=== PATIENT | female | born 1960 | race Caucasian/White ===

== ENCOUNTER 2017-11-27 05:41 | Emergency (ER) | payer OTHER ==
[~2017-11-27] VITALS: Ht 160 cm; Wt 65.8 kg
--- NOTE | 2017-11-27 05:45 | NUR ---
WORSENING RLQ ABD PAIN +N/V/D WORSENING SINCE YESTERDAY PM. RR EVEN AND UNLABORED. PENDING MD ANDERSEN.
[2017-11-27] MEDS ORDERED: KETOROLAC TROMETHAMINE 15 MG/ML VIAL ONE (06:21)
[2017-11-27] MEDS ORDERED: ONDANSETRON HCL/PF 4 MG/2 ML VIAL ONE (06:21)
[2017-11-27] MEDS ORDERED: DICYCLOMINE HCL INJ 20 MG/2 ML AMPUL IM ONE ×2 (06:21→06:30)
[2017-11-27] MEDS ORDERED: IV NS 0.9% 1,000 ML BAG IV ONE (06:30)
[2017-11-27] MEDS ORDERED: KETOROLAC TROMETHAMINE INJ 30 MG/ML VIAL IV ONE (06:30)
[2017-11-27] MEDS ORDERED: ONDANSETRON HCL/PF 4 MG/2 ML VIAL IVP ONE (06:30)
[2017-11-27 07:26] VITALS: BP 102/68
== END 2017-11-27 07:27 | disposition home or self-care (01) ==
LOC: ER 05:58
DX: R10.84 Generalized abdominal pain (principal); R11.2 Nausea with vomiting, unspecified; F41.9 Anxiety disorder, unspecified; Z90.49 Acquired absence of other specified parts of digestive tract
CPT/HCPCS: A4606; J0500; J1885; J2405; J7030; Z7610

== ENCOUNTER 2018-10-18 06:47 | Inpatient (IN) | payer OTHER ==
[~2018-10-18] VITALS: Ht 160 cm; Wt 68.0 kg
--- NOTE | 2018-10-18 07:00 | NUR ---
AAOX3, BIBSELF C/O GENERALIZED ABDOMINAL PAIN X2 WEEKS, PROGRESSIVELY GETTING WORSE X1 DAY. +NAUSEA, +VOMITTING, -DYSURIA, -HEMATURIA, -FEVER. RR IS EVEN AND UNLABORED WITH NAD NOTED. PLACED ON A HOSPITAL GOWN. AWAITING MD FOR EVAL.
[2018-10-18] MEDS ORDERED: MORPHINE SULFATE INJ 4 MG/ML DISP.SYRIN ONE (07:09)
[2018-10-18] MEDS ORDERED: ONDANSETRON HCL/PF 4 MG/2 ML VIAL ONE (07:09)
--- NOTE | 2018-10-18 07:17 | NUR ---
IV LINE OBTAINED ON L WRIST 20G. BLOOD DRAWN BY TECH AT BEDSIDE.
[2018-10-18] MEDS: MORPHINE SULFATE INJ 2 MG/ML DISP.SYRIN IV ONE ×2 (07:24→08:35)
[2018-10-18] MEDS ORDERED: ONDANSETRON HCL/PF 4 MG/2 ML VIAL IVP ONE (07:30)
[2018-10-18] MEDS ORDERED: IV NS 0.9% 1,000 ML BAG IV ONE (07:30)
--- NOTE | 2018-10-18 07:30 | NUR ---
PT ENDORSED TO [facility] ASHBY FOR REJI
[2018-10-18 07:38] LABS: BASOPHILS # (AUTO) 0.1 /CMM (0.0-0.2); EOSINOPHILS % (AUTO) 0.1 % (0.0-6.0); HEMATOCRIT 41 % (33-45); LYMPHOCYTES % (AUTO) 8.2 % (20.0-44.0); MEAN CORPUSCULAR HGB CONC 34 g/dl (31.0-36.0); MEAN CORPUSCULAR VOLUME 87 fL (82-100); MONOCYTES # (AUTO) 0.5 /CMM (0.1-1.30); MONOCYTES % (AUTO) 4.5 % (2.0-12.0); NEUTROPHILS # (AUTO) 10.4 /CMM (1.8-8.9); NEUTROPHILS % (AUTO) 86.2 % (43.0-81.0); PLATELET COUNT (AUTO) 387 /CMM (150-450); RED BLOOD CELL COUNT(AUTO) 4.73 MIL/uL (4.0-5.2); WHITE BLOOD COUNT (AUTO) 12.1 K/uL (4.3-11.0)
[2018-10-18 07:43] LABS: CALCIUM, SERUM 9.2 mg/dL (8.5-10.1); CREATININE 0.8 mg/dL (0.6-1.3); POTASSIUM 4.2 mmol/L (3.5-5.1)
[2018-10-18 07:49] LABS: ALBUMIN 3.4 g/dL (3.4-5.0); BILIRUBIN,DIRECT 0.1 mg/dL (0.0-0.2); BILIRUBIN,TOTAL 0.4 mg/dL (0.2-1.0)
[2018-10-18] MEDS ORDERED: DIATR MEGLU/DIATRIZOATE SODIUM 30 ML BOTTLE (GASTROGRAPHIN) ONE (08:07)
[2018-10-18 08:13] LABS: APPEARANCE,URINE Clear (CLEAR); BILIRUBIN,URINE Negative (NEGATIVE); BLOOD, URINE Trace-intact Ery/uL (NEGATIVE); COLOR,URINE Yellow (YELLOW); KETONES,URINE Negative (NEGATIVE); LEUKOCYTE ESTERASE ,URINE Negative (NEGATIVE); NITRITE, URINE Negative (NEGATIVE); PH,URINE 7.5 (5.0-8.0); PROTEIN,URINE Negative (NEGATIVE); UGLUCOSE Negative (NEGATIVE); UROBILINOGEN,URINE 0.2 EU/dL (0.2)
[2018-10-18 08:29] LABS: SQUAMOUS EPITHELIAL CELL,UR None Seen /HPF (None Seen)
[2018-10-18 08:30] LABS: BACTERIA,URINE None seen /HPF (None Seen); WBC,URINE 0-2 /HPF (0-3)
[2018-10-18 08:31] LABS: RBC,URINE 0-2 /HPF (0-2)
[2018-10-18] MEDS ORDERED: PIPERACILLIN /TAZOBACTAM 3.375 G in IV D5W 50 ML IV ONE (10:30)
--- NOTE | 2018-10-18 10:45 | NUR ---
CALLED DR. STEARNS AND TRANSFERRED TO DR. NEGRETE.
--- NOTE | 2018-10-18 10:56 | NUR ---
DR. HUGHES PAGED AND RECEIVED A CALL BACK, TRANSFERRED TO DR. NEGRETE.
[2018-10-18 12:00] VITALS: BP 125/81
--- NOTE | 2018-10-18 12:10 | NUR ---
PATIENT A/OX4, AMBULATORY, DENIES NAUSEA OR VOMITING AT THIS TIME. DENIES PAIN OR DISCOMFORT AT THIS TIME. WILL CONTINUE TO MONITOR.
--- NOTE | 2018-10-18 12:12 | NUR ---
BED 328-2
--- NOTE | 2018-10-18 12:17 | NUR ---
VERIFIED WITH DR. NEGRETE RE: PLACEMENT OF NGT, PER MD, DR. STEARNS DID NOT ORDER AN INSERTION AT THIS TIME. REPORT GIVEN TO MAMI WALLACE, ENDORSED TO CONFIRM WITH DR. STEARNS RE: INSERTION OF NGT.
--- NOTE | 2018-10-18 12:32 | NUR ---
patient transferred to room 328-1 MS, in stable condition.
--- NOTE | 2018-10-18 12:35 | NUR ---
PT HAS NO COMPLAINT OF ABDOMINAL PAIN OR NAUSEA, NOT IN DISTRESS, TOLERATING ROOM AIR, CALL LIGHT WITHIN REACH.
--- NOTE | 2018-10-18 12:35 | NUR ---
RN MS NOTES RECEIVED PT FROM E.R. STAFF VIA WHEELCHAIR, PT IS AWAKE, ALERT AND ORIENTED, ASSISTED TO BED, MADE COMFORTABLE, ROOM SET UP ORIENTATION PROVIDED TO PT, VERBALIZED UNDERSTANDING, PT ASSISTED TO BATHROOM AND HAD A BM, PER PT IT IS REGULAR IN SIZE AND CONSISTENCY, NO FOUL ODOR, AWAITING ADMITTING ORDERS FROM MD.
[2018-10-18] MEDS ORDERED: MORPHINE SULFATE INJ 2 MG/ML DISP.SYRIN IV PRN (14:00)
[2018-10-18] MEDS ORDERED: MAG HYDROX/AL HYDROX/SIMETH 30 ML UDC PO PRN (14:00)
[2018-10-18] MEDS ORDERED: Z GUARD REMEDY 2 OZ OINT TP PRN (14:00)
[2018-10-18] MEDS ORDERED: ACETAMINOPHEN 325 MG TABLET PO PRN (14:00)
[2018-10-18] MEDS ORDERED: ZOLPIDEM TARTRATE 5 MG TABLET PO PRN (14:00)
[2018-10-18] MEDS ORDERED: MAGNESIUM HYDROXIDE 30 ML UDC PO PRN (14:00)
[2018-10-18] MEDS ORDERED: ONDANSETRON HCL/PF 4 MG/2 ML VIAL IVP PRN (14:00)
[2018-10-18] MEDS ORDERED: HYDROCODONE/APAP 5/325MG 1 EACH TABLET PO PRN (14:00)
[2018-10-18] MEDS: IV D5/0.45 NACL 1,000 ML IV PRN (15:01)
[2018-10-18 16:00] VITALS: BP 112/74
[2018-10-18] MEDS: DOCUSATE SODIUM 100 MG CAPSULE PO SCH (16:47)
[2018-10-18] MEDS: LEVOFLOXACIN 500 MG /D5W 100ML 500 MG in PREMIX 1 EA IV SCH (16:47)
[2018-10-18] MEDS: SENNOSIDES/DOCUSATE SODIUM 1 TAB TABLET PO SCH (16:48)
--- NOTE | 2018-10-18 19:00 | NUR ---
RN MS NOTES PT IN BED, AWAKE, ALERT AND ORIENTED, NO COMPLAINT OF PAIN AT THIS TIME, NO NAUSEA OR VOMITING, PT ABLE TO HAVE BOWEL MOVEMENTS TODAY, IV FLUIDS INFUSING WELL, PT SEEN BY DR HUGHES AND DR STEARNS, PER OK TO START ON CLEAR LIQUID DIET, PLAN OF CARE DISCUSSED WITH PT AND FAMILY, VERBALIZED UNDERSTANDING, ALL NEEDS ATTENDED.
--- NOTE | 2018-10-18 19:48 | NUR ---
MS FORESTRY AND WILDLIFE MANAGER INITIAL NOTES RECEIVED REPORT FROM AM NURSE WHILE DOING OUR ROUNDS, SEEN SITTING IN HER BED STILL EATING HER DINNER,DENIES ANY N/V AT THIS TIME. NO SIGNS OF ANY DISTRESS NOTED. PT STATED SHE FEEL MUCH BETTER THAT EARLIER . SHE PASSES GAS AND AT THE SAME TIME NO ABDOMINAL PAIN AT THIS TIME. PT STILL ON IVF D51/2 NS AT 75ML.HR INFUSING ON HER LEFT HAND HAND PATENT AND INTACT. NO REDNESS NOTED. ENCOURAGE PT TO USED THE CALL LIGHT SYSTEM IF SHE NEEDS SOME HELP OR NEEDS THE NURSE. KEPT HER WARM AND COMFORTABLE AT ALL TIMES. PLACE CALL LIGHT AT REACH. WILL CONTINUE MONITORING.
[2018-10-18 20:00] VITALS: BP 114/60
[2018-10-18] MEDS: METRONIDAZOLE 500MG/ NS 100ML 500 MG in PREMIX 1 EA IV SCH (21:45)
--- NOTE | 2018-10-18 21:51 | NUR ---
COVERING PRIMARY NURSE-DARY IV Metronidazole administered, education provided, indication and possible side effect explained, patient verbalized understanding.
[2018-10-18] MEDS ORDERED: POLYETHYLENE GLYCOL 3350 17 GM POWD.PACK PO SCH (22:00)
--- NOTE | 2018-10-18 23:40 | NUR ---
MS BRUNO NOTES PT COMPLAINED OF HEADACHE, TYLENOL PO GIVEN ORDERED.
--- NOTE | 2018-10-19 02:00 | NUR ---
ms caleb initial notes pt resting comfortably in bed without any distress noted. kept her warm and comfortable at all times. place call light at reach. will continue to monitor.
[2018-10-19] MEDS: METRONIDAZOLE 500MG/ NS 100ML 500 MG in PREMIX 1 EA IV SCH ×2 (06:01→12:02)
--- NOTE | 2018-10-19 06:04 | NUR ---
COVERING PRIMARY NURSE-DARY IV Metronidazole administered, education provided, indication and possible side effect explained, patient verbalized understanding.
[2018-10-19] MEDS: IV D5/0.45 NACL 1,000 ML IV PRN (07:15)
--- NOTE | 2018-10-19 07:42 | NUR ---
ms yield improvement engineer closing notes pt is awake and alert sitting in her bed with a smile on her face when I greet her good morning. she stated she feel much better after she took miralax last night . slept well and denies any pain or any discomfort. all due meds given and all needs met. kept her warm and comfortable at all times. IVF still infusing. endorse to am nurse for continuity of care. place call light at reach.
--- NOTE | 2018-10-19 07:59 | NUR ---
RN MS OPENING NOTES Patient remains on room air, no sob noted. Patient denies pain at this time to her stomach. Patient stated that she is more comfortable after having a BM after she received miralax last night. Patient stated she is excited to go home. Vital signs stable, bed at the lowest setting, call light within reach.
[2018-10-19 08:00] VITALS: BP 124/76
[2018-10-19] MEDS: DOCUSATE SODIUM 100 MG CAPSULE PO SCH ×3 (08:18→16:52)
[2018-10-19] MEDS: SENNOSIDES/DOCUSATE SODIUM 1 TAB TABLET PO SCH (08:18)
[2018-10-19 08:26] LABS: BASOPHILS % (AUTO) 0.4 % (0.0-2.0); EOSINOPHILS % (AUTO) 0.9 % (0.0-6.0); HEMATOCRIT 38 % (33-45); HEMOGLOBIN 12.8 g/dL (11.5-14.8); LYMPHOCYTES # (AUTO) 1.5 /CMM (0.8-4.8); MEAN CORPUSCULAR HGB CONC 34 g/dl (31.0-36.0); MEAN CORPUSCULAR VOLUME 87 fL (82-100); MONOCYTES # (AUTO) 0.3 /CMM (0.1-1.30); NEUTROPHILS # (AUTO) 2.2 /CMM (1.8-8.9); NEUTROPHILS % (AUTO) 54.7 % (43.0-81.0); PLATELET COUNT (AUTO) 353 /CMM (150-450); RED BLOOD CELL COUNT(AUTO) 4.34 MIL/uL (4.0-5.2); WHITE BLOOD COUNT (AUTO) 4.1 K/uL (4.3-11.0)
[2018-10-19 08:40] LABS: CALCIUM, SERUM 8.4 mg/dL (8.5-10.1); CREATININE 0.8 mg/dL (0.6-1.3); MAGNESIUM 2.2 mg/dL (1.8-2.4); POTASSIUM 3.7 mmol/L (3.5-5.1)
[2018-10-19] MEDS ORDERED: LEVO500T75 PO (12:10)
[2018-10-19] MEDS ORDERED: DIATR MEGLU/DIATRIZOATE SODIUM 120 ML BOTTLE (GASTROGRAPHIN) ONE (14:16)
[2018-10-19] MEDS: LEVOFLOXACIN 500 MG /D5W 100ML 500 MG in PREMIX 1 EA IV SCH (15:26)
[2018-10-19 16:00] VITALS: BP 118/70
--- NOTE | 2018-10-19 18:39 | NUR ---
RN MS CLOSING NOTES Patient about to be discharged, patient awaiting for her to arrive and pick her up. Patient has all the paperwork in her possession, signed, and has no further questions. Patient aware of the prescription and knows the location of the [facility]. Patient has all her possession, clothing, cellphone, and jewelry. Will give report to NOC RN for REJI bedside.
--- NOTE | 2018-10-19 19:30 | NUR ---
DISCHARGED Discharge instruction and follow up appointment was given to patient by Italia Rodriguez/MADISON. IV Peripheral line removed by Italia Rodriguez/MADISON per Nurse Kay, patient left hosp in stable condition via private car. Italia Rodriguez/MADISON accompanied patient to the hospital lobby per Nurse Kay.
== END 2018-10-19 19:20 | disposition home or self-care (01) | DRG 392 ==
LOC: ER 06:47 → MED 12:58
PROVIDERS: ADMIT Internal Medicine; ATTEND Internal Medicine
DX: K57.12 Diverticulitis of small intestine without perforation or abscess without bleeding (principal); K57.10 Diverticulosis of small intestine without perforation or abscess without bleeding; I10 Essential (primary) hypertension; E78.5 Hyperlipidemia, unspecified
CPT/HCPCS: 36415; 71045-TC; 74250-TC; 80048-TC; 80076-TC; 81000-TC; 83690-TC; 83735-TC; 84100-TC; 85025-TC; 87081-TC; A4216; G0378; J1956; J2270; J2405; J2543; J3490; J7030; J7060; Q9963

== ENCOUNTER 2023-01-07 07:46 | Emergency (ER) | payer OTHER ==
[~2023-01-07] VITALS: Ht 160 cm; Wt 68.0 kg
[~2023-01-07 07:46] MED LIST: LEVO500T23 PO
[2023-01-07] MEDS ORDERED: AMOX-430 PO (08:35)
[2023-01-07] MEDS ORDERED: DOXY100C2 PO (08:35)
[2023-01-07] MEDS ORDERED: IBUP-1955 PO (08:35)
[2023-01-07 09:21] VITALS: BP 152/84; TEMP 98; O2SAT 99
== END 2023-01-07 09:22 | disposition home or self-care (01) ==
LOC: ER 07:52
DX: S70.362A Insect bite (nonvenomous), left thigh, initial encounter (principal); L03.115 Cellulitis of right lower limb; Z79.899 Other long term (current) drug therapy; Z90.49 Acquired absence of other specified parts of digestive tract; W57.XXXA Bitten or stung by nonvenomous insect and other nonvenomous arthropods, initial encounter; Y93.89 Activity, other specified; Y92.89 Other specified places as the place of occurrence of the external cause; Y99.8 Other external cause status